=== PATIENT | male | born 1970 | race Two or more races ===

== ENCOUNTER 2016-12-16 05:39 | Day surgery (SDC) | payer OTHER ==
--- NOTE | 2016-12-14 08:42 | HP ---
DATE OF CLINIC: 12/10/16 LEOBARDO RHOADES : 1970 PLANNED PROCEDURE: Left Knee Arthroscopic ACL Reconstruction with Allograft and Partial Medial and Lateral Meniscectomies DATE OF SURGERY: December 16, 2016 SURGEON: Austin Saucedo M.D. HISTORY OF PRESENT ILLNESS Leobardo Rhoades is a 46 year old male. * Medication list reviewed with patient allergy list reviewed with patient. 46-year-old gentleman who complains of long standing left knee pain and instability most noticeable since spring of this year, but on and off for over the past 5 years after a twisting injury while climbing a ladder. Patient works as director security management and so he is up on ladders and stuff like that on a regular basis and is having more and more trouble doing that with this knee. His knee is both painful and has a sensation of instability, although the pain is not bothering him particularly today. He has taken some anti-inflammatories in the past, but not had any other therapies for it and no injections. He has no other extremity complaints. After discussion and review of treatment options, both operative and nonoperative, he has elected to proceed with surgery and presents today preoperatively. Past medical and surgical history are as documented. SOCIAL HISTORY Social history changed. Behavioral: No tobacco use. Never smoked. Smoking status: Never smoker. Work: Occupation [employer]. ALLERGIES * No Known Allergies FAMILY HISTORY 3 children living REVIEW OF SYSTEMS No recent constitutional symptoms to include fevers and chills. No recent cardiovascular symptoms to include chest pain or palpitations. No recent respiratory symptoms to include shortness of breath or recent infections. PHYSICAL FINDINGS * Vitals taken 12/10/2016 02:13 pm BP-Sitting L 110/61 mmHg Pulse Rate-Sitting 62 bpm Temp-Oral 98 F Height 71 in Weight 225 lbs Body Mass Index 31.4 kg/m2 Body Surface Area 2.22 m2 Pain Level 4 Ears, Nose, Throat: * ENT: normal. Lungs: * Clear to auscultation. Cardiovascular: Heart Rate And Rhythm: * Normal. Abdomen: * Normal. Neurological: Motor: * Dominant Hand = Left Hand. Patient is a well-developed, well-nourished male in no acute distress. He is awake, alert and conversant throughout the encounter. CARDIOVASCULAR: Intact peripheral pulses on bilateral lower extremities. No significant edema on inspection of bilateral lower extremities. NEUROLOGIC: Patient had intact coordinated composite motion of the bilateral lower extremities and sensation intact to light touch in all distributions of bilateral lower extremities. PSYCHIATRIC: Patient was oriented to person, place and time and displayed appropriate mood and affect during the encounter. SKIN: Exam of the skin on bilateral lower extremities showed no significant scars, lesions, rashes or masses. FOCUSED MUSCULOSKELETAL EXAM: Patient is ambulating without antalgia. Normal resting station of bilateral hips, knees and ankles. His left knee shows no erythema, ecchymosis or swelling. He has tenderness to palpation along the medial and lateral jointlines. He has positive anterior drawer, negative posterior drawer, positive Emil and positive pivot shift. He is able to perform a SLR. He has 5/5 strength in flexion and extension at the knee. He is stable to varus and valgus stress at 0 and 30. He has normal resting tone and well perfused leg, intact sensation, midline patella and no patellar apprehension. IMAGING Review of his xrays shows some mild medial compartment changes and beaking of the tibial spines. His MRI shows a chronic ACL tear and a tear of his posterior horn of his lateral meniscus as well as a tear of his medial meniscus. ASSESSMENT 46-year-old male with medial and lateral meniscal tears and an ACL deficient left knee that is limiting his ability to participate in his desired activities. THERAPY * Patient not eligible for fall risk assessment. PLAN * Derang of unsp medial meniscus due to old tear/inj, l knee Percocet 5-325 MG TABS, Take 1-2 tablets every 4-6 hours as needed for pain; not to exceed 8 tablets in 24 hours., 14 days, 0 refills * Knee Arthroscopy (Left) with ACL reconstruction with allograft and partial medial and lateral meniscectomies CARE TEAM No Current PCP Family Practice SURGICAL CONSENT We have discussed surgical options including left knee arthroscopic ACL reconstruction with allograft, partial medial and lateral meniscectomies and nonoperative management. The patient was counseled in detail regarding the diagnosis, treatment options available, prognosis of each treatment option and the potential risks and complications. The risks of surgery include, but are not limited to, anesthetic , neurovascular complications, pulmonary embolism, deep vein thrombosis, wound dehiscence, failure of any or all of the discussed procedures, infection of the joint or surrounding soft tissue, need for revision surgery, chronic pain, limitations in activities of daily living, inability to return to work, and loss of normal range of motion or functional use of the extremity. There is the possibility of failure over time that may require additional operative or nonoperative treatment. The patient acknowledged that there are a number of perioperative risks not mentioned here and would still like to proceed. The patient is aware of and understands these risks, and wishes to proceed with the proposed surgical procedure and other procedures as indicated at the time of surgery. We will have the patient see their PCP for a preoperative medical risk assessment. The preoperative instructions were reviewed with the patient and all questions were answered.
[2016-12-16] MEDS ORDERED: CEFAZOLIN SODIUM 2 GRAM PREMIX 100 ML IV PRN (05:45)
[2016-12-16] MEDS ORDERED: IV START KIT ONE (05:50)
[2016-12-16] MEDS ORDERED: LACTATED RINGERS 1,000 ML ONE (05:50)
[2016-12-16] MEDS ORDERED: CEFAZOLIN SODIUM 2 GRAM PREMIX 100 ML IV ONE (06:31)
[2016-12-16] MEDS ORDERED: PROPOFOL 20 ML IV ONE ×2 (06:58→08:39)
[2016-12-16] MEDS ORDERED: MIDAZOLAM HCL 1 MG/ML 2ML VIAL ONE (06:58)
[2016-12-16] MEDS ORDERED: FENTANYL 100 MCG/2 ML VIAL ONE ×2 (06:58→08:52)
[2016-12-16] MEDS ORDERED: NERVE BLOCK PROCEDURAL TRAY 1 EACH ONE (07:05)
[2016-12-16] MEDS ORDERED: ROPIVACAINE 0.5% 30 ML VIAL ONE (07:05)
[2016-12-16] MEDS ORDERED: SPINAL PROCEDURAL TRAY 1 EACH ONE (07:05)
[2016-12-16] MEDS ORDERED: PROMETHAZINE HCL 25 MG/ML VIAL IM PRN (08:29)
[2016-12-16] MEDS ORDERED: MEPERIDINE 25 MG/ML SYRINGE IV PRN (08:29)
[2016-12-16] MEDS ORDERED: LABETALOL HCL 5 MG/ML 20ML VIAL IV PRN (08:29)
[2016-12-16] MEDS ORDERED: HYDRALAZINE HCL 20 MG/1 ML VIAL IV PRN (08:29)
[2016-12-16] MEDS ORDERED: ATROPINE SULFATE 0.4 MG/1 ML VIAL IV PRN (08:29)
[2016-12-16] MEDS ORDERED: ON-Q PUMP/ROPIVACAINE 0.2% 400 ML in PREMIX BAG 1 EACH NB PRN (08:29)
[2016-12-16] MEDS ORDERED: ONDANSETRON 4 MG/2ML 2 ML VIAL IV PRN ×2 (08:29→10:14)
[2016-12-16] MEDS ORDERED: HYDROMORPHONE HCL 1 MG/ML SYRINGE IV PRN ×2 (08:29→10:14)
[2016-12-16] MEDS ORDERED: FENTANYL 100 MCG/2 ML VIAL IV PRN (08:29)
[2016-12-16] MEDS ORDERED: NALOXONE HCL 0.4 MG/ML VIAL IV PRN (08:29)
[2016-12-16] MEDS ORDERED: LACTATED RINGERS 1,000 ML IV SCH ×2 (08:30→10:14)
[2016-12-16] MEDS ORDERED: BUPIVACAINE 0.5% W/EPI SDV 30 ML VIAL ONE (08:50)
--- NOTE | 2016-12-16 09:43 | PCMBPN ---
Brief Post Op Note: Date of Procedure: 12/16/16 Start Time: 0830 Preoperative Diagnosis: 1. left knee ACL deficiency, medial and lateral meniscus tears Postoperative Diagnosis: 1. Same 2. 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
[2016-12-16] MEDS ORDERED: ACETAMINOPHEN 325 MG TABLET PO PRN (10:14)
[2016-12-16] MEDS ORDERED: DIPHENHYDRAMINE HCL 50 MG/1 ML VIAL IV PRN (10:14)
[2016-12-16] MEDS ORDERED: OXYCODONE/ACETAMINOPHEN 5/325 MG TABLET PO PRN (10:14)
--- NOTE | 2016-12-16 10:20 | RAD ---
Exam: Two-view left knee COMPARISON: 09/27/2016 INDICATION: Postop left knee ACL. Findings: AP and lateral views of the left knee were obtained. Postsurgical changes of interval ACL repair are appreciated. Alignment is normal. Mild degenerative changes are again appreciated within the medial compartment. Two small soft tissue calcifications project in the medial compartment on the AP view, one of which may correlate with a calcifications just anterior to the tibia which was likely present previously. No unexpected fracture is identified. Alignment is maintained. IMPRESSION: Expected postoperative appearance following left ACL repair. Two small calcifications projected the medial compartment which are of uncertain etiology and significance; loose bodies cannot be excluded.
[2016-12-16] MEDS ORDERED: OXYCODONE/ACETAMINOPHEN 5/325 MG TABLET ONE ×2 (11:46→11:48)
--- NOTE | 2016-12-17 09:20 | OP ---
Leobardo HEART : 1970 [id number] DATE OF PROCEDURE: December 16, 2016 PREOPERATIVE DIAGNOSES: Left knee ACL deficiency with medial and lateral meniscus tears. POSTOPERATIVE DIAGNOSES: Left knee ACL deficiency with medial and lateral meniscus tears, grade 3 chondral lesion of the trochlea. PROCEDURE PERFORMED: LEFT KNEE ARTHROSCOPY WITH SHAVING ARTHROPLASTY OF THE TROCHLEA, PARTIAL MEDIAL AND LATERAL MENISCECTOMIES AND AN ACL RECONSTRUCTION OF THE ALLOGRAFT TENDON. SURGEON: Austin Saucedo M.D. SENIOR RESERVATIONS AGENT: Eboni Bedolla ANESTHESIA: Jon Arita C.R.N.A. SPECIMENS: None. ESTIMATED BLOOD LOSS: 50 mL FLUIDS REPLACED: 1000 mL of crystalloid. TOURNIQUET TIME: 50 minutes at 250 mmHg. IMPLANTS: MiTek RigidLoop in the femur, 8 mm anterior tibialis allograft and a short MiTek BioIntrafix screw in the tibia. DRAINS: No drains. INDICATIONS: This is a 46-year-old male with history, physical exam and radiographic findings consistent with an ACL disruption of their left knee. In order to allow the patient to return to their desired level of activity they were counseled that we recommended an ACL reconstruction. The risks, benefits and alternatives were discussed with the patient and they agreed to proceed with surgery. Informed consent was obtained and documented in the chart. DESCRIPTION OF PROCEDURE: The patient was identified in the preoperative holding area where they were marked with an indelible marker by the operating surgeon. An adductor canal block was administered by the anesthesia provider. The patient was then taken to the operating room where they were placed in the supine position on the operating room table. General anesthesia was induced. Perioperative antibiotics were administered. A well padded pre-calibrated nonsterile tourniquet was placed on the left upper thigh. The patient was then prepped and draped in the usual sterile fashion for surgery. An operative time out was performed and confirmed by all members of the operative team. The leg was elevated and exsanguinated using an Esmarch bandage and the tourniquet was inflated to 250 mmHg. A standard lateral portal was created and the 30 degree viewing arthroscope was inserted in the knee. Optics were directed anteromedially and a medial portal was localized with a spinal needle and created in a standard fashion. A probe was inserted through the medial portal and used in completion of diagnostic arthroscopy with the following findings: The patient had a large, grade 3 chondral lesion in his trochlea that had unstable margins and was debrided. There was grade 2 and 3 changes in both the medial and lateral compartments on the femoral condyles, tibial plateaus were largely intact. There were tears of the posterior horns of both medial and lateral menisci which were somewhat degenerative in appearance and were irreparable. The ACL was ruptured and efficient. The PCL was intact. The medial and lateral collateral ligaments were intact on intraoperative examination under anesthesia. After completion of diagnostic arthroscopy the probe was exchanged for an arthroscopic biter which was used to resect the residual ACL. This was exchanged for an arthroscopic resector shaver which was used to complete resection of the ACL and to prepare the bed for a graft on the tibia and femoral insertions. FOR [employer] AUTOG[employer]FT ONLY: A 3 cm incision was made over the anteromedial tibia and dissection carried down identifying the Sartorius fascia. The fascia was incised in an L shaped fashion and the insertions of the semi-tendinosis and gracilis were identified. These were dissected free and whipstitch was placed on the end of each tendon and then a long close ended tendon stripper was used to harvest the tendons from the musculotendinous junctions. These were taken to the back table where the muscle tissue was cleaned. The tendons were folded in half and whipstitched together on the proximal ends and the MiTek RigidLoop graft device was applied according to wild oyster harvester's instructions. Next, the camera was pushed to the medial portal and a femoral guide for the ACL set to 105 degrees was brought in through the lateral portal. This was localized to the anatomic footprint of the ACL on the lateral wall of the notch and a guide pin was driven in through a stab incision on the lateral side of the thigh entering the knee in the appropriate position of the notch. The sleeve for the FlipCutter was then pounded down over the guide pin. The guide pin was exchanged for a 8 mm FlipCutter which was deployed within the knee and drawn back to create a 31 mm deep femoral tunnel. We confirmed a good posterior wall on the tunnel. A suture was passed through the tunnel and tagged for later used in drawing the femoral fixation hardware through the knee. Cameras were switched again to the lateral portal and a tibial guide was brought in through the medial portal. Position of the tibial tunnel was localized just in front of the PCL on the medial shelf of the intercondylar spines and at the posterior border of the anterior horn of the lateral meniscus. A stab incision was made on the front of the leg and a guide pin was driven up into the knee entering through the appropriate position. This was reamed over with a size 8 mm Ardsley reamer to create our tibial tunnel. All of the debris from the tunnels was then evacuated out of the knee and the leading sutures were passed out through the tibial tunnel. The anterior tibialis graft which had been prepared on the back table was brought onto the field and the leading sutures of the MiTek RigidLoop device were passed through the knee using the passing suture under arthroscopic visualization. The button was observed to pass through the knee and to deploy on the lateral surface of the distal femur. The graft was arthroscopically visualized as it passed through the knee and docked well into the socket of the femur. Tension was held on the tails of the graft while the knee was cycled 30 times and then the tibial tunnel was dilated. The sleeve for the Intrafix device was placed and the screw for tibial fixation was placed. This was all done with a posterior drawer applied to the knee while in a 30 degree flexed position with the foot resting on a Carlson stand and tension on the graft limbs. At this point an examination under anesthesia demonstrated a stable knee both rotationally and translationally with a negative Emil. The excess graft was cut off and the sutures were cut off from the femoral button. All incision sites were closed with #4-0 Nylon. A sterile dressing of Xeroform, fluffs, ABDs, web roll and an JEROME bandage was applied. The patient was placed into a drop lock knee brace locked in extension and set to 0 to 60 when unlocked. The tourniquet was deflated, the drapes were removed. The patient was awakened from anesthesia and transferred to a stretcher and taken postoperatively to the post anesthesia care unit in stable condition. There were no observed intraoperative complications during this procedure. Job [id number] Cc: [facility]
== END 2016-12-16 16:57 | disposition home or self-care (01) ==
LOC: SDC 05:39
PROVIDERS: ATTEND Orthopaedic Surgery
PROC: 0SBD4ZZ Excision of Left Knee Joint, Percutaneous Endoscopic Approach (ICD-10-PCS; principal; 2016-12-16)
DX: S83.512A Sprain of anterior cruciate ligament of left knee, initial encounter (principal); X50.1XXA Overexertion from prolonged static or awkward postures, initial encounter; Y93.39 Activity, other involving climbing, rappelling and jumping off; M23.222 Derangement of posterior horn of medial meniscus due to old tear or injury, left knee; M23.252 Derangement of posterior horn of lateral meniscus due to old tear or injury, left knee; M94.8X6 Other specified disorders of cartilage, lower leg
CPT/HCPCS: 29888; 29880; 73560; J3010 ×2; J2795; A9270 ×2; J2250; J7120; J0690